=== PATIENT | female | born 1950 | race Caucasian/White ===

== ENCOUNTER 2022-12-14 11:56 | Emergency (ER) | payer OTHER ==
[~2022-12-14] VITALS: Ht 162.6 cm; Wt 77.6 kg
[2022-12-14] MEDS ORDERED: ZESTRIL2.5 MG (12:11)
[2022-12-14] MEDS ORDERED: GLUMETZA500 MG (12:11)
[2022-12-14] MEDS ORDERED: TIROSINT13 MCG (12:11)
[2022-12-14] MEDS ORDERED: CRESTOR5 MG (12:11)
== END 2022-12-14 15:38 | disposition home or self-care (01) ==
LOC: ER 11:56
DX: R00.2 Palpitations (principal); I10 Essential (primary) hypertension